=== PATIENT | female | born 1970 | race African-American/Black ===

== ENCOUNTER 2022-09-04 17:55 | Outpatient (CLI) | payer BC | END 2022-09-04 17:56 | disposition home or self-care (01) | LOC: BURRAD 17:55 | PROVIDERS: ATTEND Registered Nurse Community Health | DX: M54.41 Lumbago with sciatica, right side (principal); M47.816 Spondylosis without myelopathy or radiculopathy, lumbar region; M51.36 Other intervertebral disc degeneration, lumbar region; M51.37 Other intervertebral disc degeneration, lumbosacral region | CPT/HCPCS: 72110 ==

== ENCOUNTER 2025-09-09 13:05 | Outpatient (CLI) | payer BC | END 2025-09-09 13:06 | disposition home or self-care (01) | LOC: BURRAD 13:05 | PROVIDERS: ATTEND Family Medicine | DX: M25.562 Pain in left knee (principal); G89.29 Other chronic pain ==